=== PATIENT | male | born 1970 | race Two or more races ===

== ENCOUNTER → 2025-09-19 | Emergency (ER) | payer OTHER ==
[~2025-09-19] VITALS: Ht 188 cm; Wt 102.1 kg
[~2025-09-19] MED LIST: ACETAMINOPHEN 500 MG GEL..CAP PO ONE; CLEOCIN HCL300 MG PO; CLINDAMYCIN PHOSPHATE 150 MG/ML (300mg) ONE; CLINDAMYCIN PHOSPHATE 150 MG/ML (600mg) IM ONE; COZAAR50 MG; DEXAMETHASONE SODIUM PHOSPHATE 4 MG/ML VIAL IM ONE; DEXAMETHASONE SODIUM PHOSPHATE 4 MG/ML VIAL ONE; INTESTINEX680 M1 PO; PEPCID AC20 MG PO; ZOLOFT50 MG
== END | disposition home or self-care (01) ==
LOC: ER 13:19
DX: J03.80 Acute tonsillitis due to other specified organisms (principal); I10 Essential (primary) hypertension